=== PATIENT | male | born 1980 | race Hispanic/Latino ===

== ENCOUNTER 2019-10-07 20:10 | Emergency (ER) | payer OTHER ==
--- NOTE | 2019-10-07 21:24 | RAD ---
LEFT HAND THREE VIEWS: LEFT WRIST THREE VIEWS: 10/07/19 HISTORY: Injury, left hand and wrist pain. FINDINGS/IMPRESSION: No acute fracture or dislocations seen. If there is tenderness in the anatomic snuff box and symptoms do not improve, follow-up exam should b e obtained in 7 to 10 days. POS: [facility]
--- NOTE | 2019-10-07 21:25 | RAD ---
LEFT HAND THREE VIEWS: LEFT WRIST THREE VIEWS: 10/07/19 HISTORY: Injury, left hand and wrist pain. FINDINGS/IMPRESSION: No acute fracture or dislocations seen. If there is tenderness in the anatomic snuff box and symptoms do not improve, follow-up exam should b e obtained in 7 to 10 days. POS: [facility]
[2019-10-07] MEDS ORDERED: Ketorolac Tromethamine 30 MG/ML VIAL ONE (21:39)
== END 2019-10-07 22:10 | disposition home or self-care (01) ==
LOC: ERS 20:10
DX: S69.92XA Unspecified injury of left wrist, hand and finger(s), initial encounter (principal); E11.9 Type 2 diabetes mellitus without complications; E03.9 Hypothyroidism, unspecified; W20.8XXA Other cause of strike by thrown, projected or falling object, initial encounter
CPT/HCPCS: 96372; J1885